=== PATIENT | male | born 1970 | race Caucasian/White ===

== ENCOUNTER → 2024-01-25 | Emergency (ER) | payer OTHER ==
[~2024-01-25] VITALS: Ht 162.6 cm; Wt 70.3 kg
[~2024-01-25] MED LIST: BO1 TP; TETANUS, DIPHTHERIA, PERTUSSIS VAC/PF 0.5ML (>10YR OLD) IM ONE
[2024-01-25 15:04] VITALS: BP 174/82; PULSE 80; RESP 16; TEMP 98.3; O2SAT 97
[2024-01-25] MEDS: BACITRACIN ZINC OINT UDPKT TOP ONE (18:37)
[2024-01-25] MEDS: LIDOCAINE HCL/PF 1% 10 MG/ML 5ML VIAL INFIL ONE (18:37)
[2024-01-25] MEDS: TETANUS, DIPHTHERIA, PERTUSSIS VAC/PF 0.5ML (>10YR OLD) IM ONE (18:37)
== END ==
LOC: ER 15:02
DX: S61.412A Laceration without foreign body of left hand, initial encounter (principal); Z90.49 Acquired absence of other specified parts of digestive tract; X58.XXXA Exposure to other specified factors, initial encounter; Y93.89 Activity, other specified; Y92.89 Other specified places as the place of occurrence of the external cause; Y99.8 Other external cause status
CPT/HCPCS: 90715; 12004; 90471; 99283; J3490; Z7610 ×2

== ENCOUNTER 2024-01-29 09:54 | Emergency (ER) | payer OTHER ==
[~2024-01-29] VITALS: Ht 162.6 cm; Wt 72.6 kg
[~2024-01-29 09:54] MED LIST changes: -TETANUS, DIPHTHERIA, PERTUSSIS VAC/PF 0.5ML (>10YR OLD) IM ONE
[2024-01-29 10:01] VITALS: BP 156/88; PULSE 67; RESP 16; TEMP 98.3; O2SAT 98
== END 2024-01-29 10:08 | disposition home or self-care (01) ==
LOC: ER 09:56
DX: S61.412D Laceration without foreign body of left hand, subsequent encounter (principal); Z90.49 Acquired absence of other specified parts of digestive tract; X58.XXXD Exposure to other specified factors, subsequent encounter
CPT/HCPCS: 99281

== ENCOUNTER 2024-02-05 11:38 | Emergency (ER) | payer OTHER ==
[~2024-02-05] VITALS: Ht 172.7 cm; Wt 83.0 kg
[2024-02-05 11:39] VITALS: O2SAT 100
[2024-02-05 11:50] VITALS: BP 118/79; PULSE 69; RESP 18; TEMP 98.6; O2SAT 98
== END 2024-02-05 13:39 | disposition home or self-care (01) ==
LOC: ER 11:44
DX: S61.412D Laceration without foreign body of left hand, subsequent encounter (principal); Z90.49 Acquired absence of other specified parts of digestive tract; X58.XXXD Exposure to other specified factors, subsequent encounter
CPT/HCPCS: 99281